=== PATIENT | male | born 1980 | race Caucasian/White ===

== ENCOUNTER 2017-05-19 13:19 | Emergency (ER) | payer SELFPAY ==
[~2017-05-19] VITALS: Ht 172.7 cm; Wt 75.3 kg
[2017-05-19 18:21] VITALS: BP 132/89
== END 2017-05-19 18:21 | disposition home or self-care (01) ==
LOC: ED 13:19
DX: S71.111A Laceration without foreign body, right thigh, initial encounter (principal); W29.3XXA Contact with powered garden and outdoor hand tools and machinery, initial encounter; Y93.89 Activity, other specified; Y99.8 Other external cause status; Y92.89 Other specified places as the place of occurrence of the external cause
CPT/HCPCS: 90715; J2001

== ENCOUNTER 2017-05-28 11:44 | Emergency (ER) | payer SELFPAY ==
[2017-05-28 15:05] VITALS: BP 131/82
== END 2017-05-28 15:05 | disposition home or self-care (01) ==
LOC: ED 11:44
DX: S71.111D Laceration without foreign body, right thigh, subsequent encounter (principal); R03.0 Elevated blood-pressure reading, without diagnosis of hypertension; X58.XXXD Exposure to other specified factors, subsequent encounter